=== PATIENT | male | born 1950 | race Caucasian/White ===

== ENCOUNTER → 2021-06-17 11:30 | Outpatient (CLI) | payer MEDICARE, SELFPAY ==
--- NOTE | 2021-06-17 11:42 | XR_ITS ---
PROCEDURE: XR RIBS LT MIN 3V W CXR1V CLINICAL INDICATION: RIB PAIN OF LT SIDE COMPARISON: No exams were available for comparison FINDINGS: Mildly displaced fractures involve the left 7th and 8th ribs posterior laterally. There is some underlying pleural thickening at these regions. No evidence of pneumothorax. Nondisplaced fracture involves the left tenth rib laterally there is minimal blunting of the right CP angle on the frontal view of the chest. Unremarkable cardiovascular structures. IMPRESSION: Mildly displaced fractures of the left 7th and 8th ribs and nondisplaced fracture of the left 10th rib Dictated by: Pierre Mendoza MD 06/17/2021 13:13 Pierre Mendoza MD in [place] 06/17/2021 13:13
== END ==
PROVIDERS: PCP Family Medicine; Visit Provider Family Medicine
DX: R07.81 Pleurodynia (principal)
CPT/HCPCS: 71101

== ENCOUNTER → 2021-07-28 10:36 | Outpatient (CLI) | payer MEDICARE, SELFPAY ==
--- NOTE | 2021-07-28 10:44 | XR_ITS ---
PROCEDURE: XR LUMBAR SPINE MIN 4V CLINICAL INDICATION: LOW BACK PAIN, UNSPECIFIED LATERALITY AND CHRONICITY COMPARISON: No exams were available for comparison FINDINGS: Normal alignment. Multilevel degenerative disc disease from L1-S1. Small anterior osteophytes. Retrolisthesis of L1 by approximately 7 mm. Generalized vascular calcification. Mild wedge compression changes are present at L3 with loss of height anteriorly of approximately 30 percent. Cortical discontinuity along the anterior superior aspect of L3. No obvious retropulsion. Generalized vascular calcification. There is sclerosis of the inferior aspect of the left SI joint. Mild degenerative changes of the hips. Lobular calcific density overlying the right upper quadrant at 12 x 4 mm suggesting right nephrolithiasis. IMPRESSION: 1. Acute appearing wedge compression fracture of L3 2. Degenerative changes. 3. Right nephrolithiasis Dictated by: Pierre Mendoza MD 07/28/2021 15:51 Pierre Mendoza MD in [place] 07/28/2021 15:51
--- NOTE | 2021-07-28 10:44 | XR_ITS ---
PROCEDURE: XR CHEST 2V CLINICAL HISTORY: SOB COMPARISON: CR XR RIBS LT MIN 3V W CXR1V from 06/17/2021 FINDINGS: The cardiomediastinal silhouette and pulmonary vascularity are within normal limits. There is a small right pleural effusion. There are healing left 7th and 8th rib fractures with some underlying pleural reaction. No evidence of pneumothorax. No lobar consolidation or collapse. Degenerative changes thoracic spine IMPRESSION: Continued blunting of the right CP angle consistent with underlying pleural effusion or thickening Healing left 7th and 8th rib fractures with underlying pleural reaction. Dictated by: Pierre Mendoza MD 07/28/2021 14:09 Pierre Mendoza MD in [place] 07/28/2021 14:09
--- NOTE | 2021-07-28 10:44 | XR_ITS ---
PROCEDURE: XR RIBS LT 2V CLINICAL INDICATION: CLOSED FX OF ONE RIB OF LT SIDE W/O ROUTINE HEALING COMPARISON: CR XR RIBS LT MIN 3V W CXR1V from 06/17/2021 FINDINGS: Healing fractures are present involving the left 7th and 8th ribs posteriorly. Minimal medial displacement of the distal fracture fragments. No acute fracture apparent. There is some minimal underlying pleural thickening at the 7th rib fracture. IMPRESSION: Healing left 7th and 8th rib fractures. Dictated by: Pierre Mendoza MD 07/28/2021 14:07 Pierre Mendoza MD in [place] 07/28/2021 14:07
== END ==
PROVIDERS: PCP Family Medicine; Visit Provider Family Medicine
DX: S22.32XD Fracture of one rib, left side, subsequent encounter for fracture with routine healing (principal); M54.50 Low back pain, unspecified; R06.02 Shortness of breath
CPT/HCPCS: 71046; 71100; 72110

== ENCOUNTER → 2022-03-03 10:29 | Outpatient (CLI) | payer MEDICARE, SELFPAY ==
--- NOTE | 2022-03-03 10:35 | XR_ITS ---
FINAL REPORT CLINICAL HISTORY: SOB, ENLARGED LIVER, ABNORMAL FULLNESS IN RT. UPPER QUADRANT COMPARISON: Rib series radiographs dated June 17, 2021. FINDINGS: A single view of the abdomen was obtained. There is a nonobstructive bowel gas pattern. There are no abnormally dilated loops of small bowel. There is a moderate amount of retained stool. There is a right upper quadrant calcification that is stable since June 2021. There is moderate degenerative change of the thoracolumbar spine. There are postoperative changes in the pelvis. There are vascular calcifications. IMPRESSION: 1. Nonobstructive bowel gas pattern. 2. Moderate amount of retained stool. Reviewed, Interpreted and Dictated by Prateek Grimaldo III, MD Transcribed by Apryl Alvarado Authenticated and [facility]
--- NOTE | 2022-03-03 10:38 | XR_ITS ---
FINAL REPORT CLINICAL HISTORY: SOB COMPARISON: 07/28/2021 FINDINGS: Two views of the chest were obtained. The heart size and pulmonary vascularity are within normal limits. The mediastinum is normal. There is mild bibasilar atelectasis. There is a small right and a moderate left pleural effusion. There is no pneumothorax. There are multiple chronic left rib fractures. IMPRESSION: Small right and moderate left pleural effusion. Mild bibasilar atelectasis. Reviewed, Interpreted and Dictated by Prateek Grimaldo III, MD Transcribed by Apryl Alvarado Authenticated and [facility]
== END ==
PROVIDERS: PCP Family Medicine; Visit Provider Family Medicine
DX: R06.02 Shortness of breath (principal); R16.0 Hepatomegaly, not elsewhere classified; R19.8 Other specified symptoms and signs involving the digestive system and abdomen
CPT/HCPCS: 71046; 74018

== ENCOUNTER → 2022-03-30 10:57 | Outpatient (CLI) | payer MEDICARE, SELFPAY ==
--- NOTE | 2022-03-30 11:05 | XR_ITS ---
FINAL REPORT CLINICAL HISTORY: PULMONARY ASPIRATION OF FLUID; BILATERAL PLEURAL EFFUSION COMPARISON: 03/03/2022 FINDINGS: TWO-VIEW CHEST The heart size is normal. The mediastinum is normal. There are small bilateral pleural effusions, partially improved on the left. There are bibasilar opacities, favor atelectasis. There is moderate degenerative change of the thoracic spine. Chronic left rib fractures are identified. There is no pneumothorax. IMPRESSION: Small bilateral pleural effusions, partially improved on the left. Reviewed, Interpreted and Dictated by Prateek Grimaldo III, MD Transcribed by Katy Rudd Authenticated and [facility]
== END ==
PROVIDERS: PCP Family Medicine; Visit Provider Family Medicine
DX: J90 Pleural effusion, not elsewhere classified (principal); J69.0 Pneumonitis due to inhalation of food and vomit
CPT/HCPCS: 71046